=== PATIENT | female | born 1975 | race Caucasian/White ===

== ENCOUNTER → 2020-11-08 17:36 | Outpatient (CLI) | payer BC, SELFPAY ==
--- NOTE | ~2020-11-08 | MM_ITS ---
EXAMINATION: MM screening [facility] BI w [facility] HISTORY: Screening mammogram TECHNIQUE: Craniocaudal and mediolateral oblique 3-D tomosynthesis images were obtained and synthetic 2-D images were generated. CAD analysis was submitted and interpreted. COMPARISON: 05/21/2018, 05/11/2017, 02/25/2015 BREAST PARENCHYMAL COMPOSITION: There are scattered areas of fibroglandular density. FINDINGS: There is no evidence of suspicious mass, calcification, or architectural distortion to sugg est malignancy in either breast. There has been no suspicious interval change. IMPRESSION: 1. No mammographic evidence of malignancy. 2. Recommend routine screening mammography in one year. BI-RADS Category 1: Negative Reviewed, dictated and finalized at location A.
== END ==
PROVIDERS: Visit Provider Nurse Practitioner Women's Health
DX: Z12.31 Encounter for screening mammogram for malignant neoplasm of breast (principal)
CPT/HCPCS: 77063; 77067

== ENCOUNTER → 2022-02-07 08:06 | Outpatient (CLI) | payer BC, SELFPAY ==
--- NOTE | ~2022-02-07 | MM_ITS ---
EXAMINATION: MM screening [facility] w [facility] HISTORY: Screening TECHNIQUE: Craniocaudal and mediolateral oblique 3-D tomosynthesis images were obtained and synthetic 2-D images were generated. CAD analysis was submitted and interpreted. COMPARISON: Comparison to multiple prior studies sequentially, with oldest reviewed study dated 01/2018. BREAST PARENCHYMAL COMPOSITION: There are scattered areas of fibroglandular density. FINDINGS: There is no evidence of suspicious mass, calcification, or architectural distortion to sugg est malignancy in either breast. There has been no suspicious interval change. IMPRESSION: 1. No mammographic evidence of malignancy. 2. Recommend routine screening mammography in one year. BI-RADS Category 1: Negative Reviewed, dictated and finalized at location A.
== END ==
PROVIDERS: PCP Internal Medicine; Visit Provider Nurse Practitioner Women's Health
DX: Z12.31 Encounter for screening mammogram for malignant neoplasm of breast (principal)
CPT/HCPCS: 77063; 77067

== ENCOUNTER 2024-02-22 07:14 | Outpatient (CLI) | payer BC, SELFPAY ==
--- NOTE | ~2024-02-22 | MM_ITS ---
EXAMINATION: MM screening [facility] w [facility] HISTORY: Screening TECHNIQUE: Craniocaudal and mediolateral oblique 3-D tomosynthesis images were obtained and synthetic 2-D images were generated. CAD analysis was submitted and interpreted. COMPARISON: Comparison to multiple prior studies sequentially, with oldest reviewed study dated 02/01. BREAST PARENCHYMAL COMPOSITION: Not dense: There are scattered areas of fibroglandular density. FINDINGS: There is no evidence of suspicious mass, calcification, or architectural distortion to sugg est malignancy in either breast. There has been no suspicious interval change. IMPRESSION: 1. No mammographic evidence of malignancy. 2. Recommend routine screening mammography in one year. BI-RADS Category 1: Negative Reviewed, dictated and finalized at location B.
== END 2024-02-22 07:15 | disposition home or self-care (01) ==
PROVIDERS: PCP Internal Medicine
DX: Z12.31 Encounter for screening mammogram for malignant neoplasm of breast (principal)
CPT/HCPCS: 77063; 77067

== ENCOUNTER 2024-08-30 05:48 | Day surgery (SDC) | payer OTHER, SELFPAY ==
[2024-08-09 11:51] VITALS: BMI 34.7
--- NOTE | 2024-08-29 16:26 | P.PNAN_ITS ---
Anes - Initial Pre Proc Eval Procedure: Operation Date: 08/30/24 07:30 Proposed Procedures p Bilateral Breast Reduction Mammoplasty - Luis Weeks MD Date/Time: 08/29/24 16:26 Surgeon: Luis Weeks MD Pre Op Diagnosis: Macromastia Patient Data Age: 48 Gender: F Height: 1.6 m Weight: 89 kg Allergies Allergy/AdvReac Type Severity Reaction Status Date / Time No Known Allergies Allergy Verified 08/30/24 06:14 Home Medications ?Medication ?Instructions ?Recorded ?Confirmed ?Type citalopram 10 mg tablet 10 mg PO DAILY 08/09/24 08/30/24 History Patient hx anesthesia problems: post op nausea/vomiting Family hx anesthesia problems: none Results Review: All pre-operative results and documents have been reviewed as part of the pre- operative evaluation. [facility] Past Medical History Medical History (Updated 08/30/24 @ 06:50 by Pankaj Sim DO) Anxiety Social History Social History Smoking status: Never smoker Second hand tobacco smoke exposure: No Alcohol intake: current Substance use: never Substance use type: does not use Living arrangements: with family Spiritual care concerns: No Anes - Eval Final PreProcedure Day of Procedure 08/29/24 16:26 Patient weight: obese Heart: regular rate and rhythm Lungs: clear to auscultation Airway: Mallampati scale class II Neurological: alert and oriented Last oral intake: >/= 8 hours ASA classification: II Emergent: no Anesthetic plan: proceed Anesthesia type and monitoring: general LMA and standard monitoring Results Review: All pre-operative results and documents have been reviewed as part of the pre- operative evaluation. Informed Consent: The patient's anesthetic plan and its attendant risks and benefits were discussed with the patient/family/POA. Questions were solicited and answers provided to the satisfaction of the patient/family/POA.
[2024-08-30] VITALS (14 sets, daily range): BP systolic 120–135; BP diastolic 58–81; PULSE 80–95; RESP 13–16; TEMP 36.4–36.7; O2SAT 94–100; BMI 34.7
--- OUTSIDE RECORDS SUMMARY | 2024-08-30 06:05 | XMS_ITS | Clinical Summary ---
Author Organization [facility] Medical Office Building B Address [address] [place] [address] Care Team Providers Care Hydrographic Surveyor Name Role Phone Gera Moraes MD Primary Care Provider + Allergies No known active allergies Medications citalopram (CeleXA) 10 mg tablet Take 1 tablet (10 mg total) by mouth daily Active valACYclovir (VALTREX) 500 mg tablet TAKE 1 TABLET(500 MG) BY MOUTH DAILY 90 tablet 3 4 Active norethindrone-e. estradioL-iron (Claribel 24 Fe) 1 mg-20 mcg (24)/75 mg (4) per tablet Take 1 tablet by mouth daily 84 tablet 3 4 Active Additional Information Patient not taking.Reported on 07/03/2024 HYDROcodone-acet aminophen (NORCO) 5-325 mg per tabletIndication s:Pain Take 1 tablet by mouth every 6 (six) hours as needed for pain 12 tablet 4 Active Additional Information Patient not taking.Reported on 07/03/2024 predniSONE (DELTASONE) 10 mg tabletIndication s:Rash and nonspecific skin eruption Take 3 tabs days 1 & 2, 2 tabs days 3 & 4, 1 tab days 5-7. 13 tablet 5 Active Active Problems Problem Noted Date Diagnosed Date Dysphagia 08/26/2018 Overview (08/26/2018): Added automatically from request for surgery [id number] Well woman exam 10/16/2016 Assessment & Plan (10/16/2016 10:39 AM CDT): Call office with any gyne health issues; wished her luck with her triathalon that she is going to do in January,; RTO in one year for a WWE/prn. Endometriosis 12/22/2013 Overview (08/07/2016): Endometriosis Anxiety 12/22/2013 Overview (08/07/2016): Anxiety Infertile 12/22/2013 Overview (08/07/2016): Infertility Encounters Date Type Department Care Team Description 07/03/2024 6:00 PM SUGAR HOUSE SUPERVISOR Office Visit [facility] at [address] [address] Lauren Han, GUME Rash and nonspecific skin eruption (Primary Dx) from Last 3 Months Immunizations Immunization Administration Dates Next Due Influenza, Quadrivalent, Split, Intramuscular Influenza, Quadrivalent, Spl it, Preservative Free, Intramuscular 02/27/2019,03/14/2018 Surgical History Surgery Date Site/Laterality Comments OTHER SURGICAL HISTORY Endometriosis: lap- diagnostic COLON SURGERY 03/10/2021 Medical History Medical History Date Comments Hx Other Medical FERTILITY SPECI ALIST Hx Other Medical 01/06/2012 laparoscopy Hx Other Medical Migraine Hx Other Medical Endometriosis; Comments: MTB 12/22/2013 - Epigastric abdominal pain Anxiety 2013 Family History Medical History Relation Name Comments Diabetes Father Mando Wiley Diabetes mellit us; Heart attack Father Mando Wiley Myocardial infa rction; Heart disease Father Mando Wiley Heart disease; Cause of : Heart disease/Heart disease; Obesity Father Mando Wiley Obesity; Breast cancer Father's Sister Cancer Mother Justina Wiley Other Mother Justina Wiley ca-liver; Pancreatic cancer Mother Justina Wiley Cancer -pa ncreatic; Hypertension Other 1 Family history of Hypertension; Cancer Other 2 Family history of Cancer; Diabetes Other 3 Family history of Diabetes mellitus; Heart disease Other 4 Family history of Heart disease; Relation Name Status Comments Father Mando Wiley Alive Father's Sister Mother Justina Wiley Alive Other 1 Other 2 Other 3 Other 4 Social History Tobacco Use Types Packs/Day Years Used Date Smoking Tobacco: Never Smokeless Tobacco: Never Tobacco Cessation:Counseling Given: Not Answered Alcohol Use Standard Drinks/Week Comments Yes 0 (1 standard drink = 0.6 oz pur e alcohol) Social Humiliation, Afraid, Rape, and Kick questionnair e Answer Date Recorded Within the last year, have y ou been afraid of your partner or ex-partner? No 12/14/2022 Within the last year, have y ou been humiliated or emotionally abused in other ways by your partner or ex-partner? No Within the last year, have y ou been kicked, hit, slapped, or otherwise physically hurt by your partner or ex-partner? No 12/14/2022 Within the last year, have y ou been raped or forced to have any kind of sexual activity by your partner or ex-partner? No 12/14/2022 PHQ-2 Answer Date Recorded PHQ-2 Total Score (If total score is 3 or more points, staff should administer the PHQ-9) 0 01/21/2024 Personal Safety Answer Date Recorded Have you ever been in or are you currently in a harmful physical or emotional relationship or is someone making you feel afraid or unsafe? Denies 02/07/2024 Comments No Sex and Gender Information Value Date Recorded Sex Assigned at Not on file Legal Sex Female 4:24 PM SUGAR HOUSE SUPERVISOR Gender Identity Not on file Sexual Orientation Not on file Obstetrics History Para Term AB IAB SAB Ectopic Multiple Livin g Live Births 0 0 0 0 0 0 0 0 0 0 0 Last Filed Vital Signs Vital Sign Reading Time Taken Comments Blood Pressure 126/82 07/03/2024 6:07 PM SUGAR HOUSE SUPERVISOR Pulse 85 07/03/2024 6:07 PM SUGAR HOUSE SUPERVISOR Temperature 36.8 C (98.2 F) 07/03/2024 6:07 PM SUGAR HOUSE SUPERVISOR Respiratory Rate 24 07/03/2024 6:07 PM SUGAR HOUSE SUPERVISOR Oxygen Saturation 98% 07/03/2024 6:07 PM SUGAR HOUSE SUPERVISOR Inhaled Oxygen Concentration - - Weight 87.5 kg (193 lb) 07/03/2024 6:07 PM SUGAR HOUSE SUPERVISOR Height 160 cm (5' 3 ) 02/07/2024 8:57 PM CDT Body Mass Index 34.19 02/07/2024 8:57 PM CDT Plan of Treatment Health Maintenance Due Date Last Done Comments Hepatitis C Screening 1975 DTaP/Tdap/Td Vaccine (1 - Tdap) 10/09/1986 Hepatitis B Screening 10/09/1993 Breast Cancer Screening-Mammogram 02/09/2023 02/09/2022, 11/11/2020, 05/11/2018, Additional history exists Influenza Vaccine (#1) 2024 , 02/27/2019, 02/27/2019, Additional history exists Cervical Cancer Screening 01/20/20252023, 12/14/2022, 10/31/2019, Additional history exists Depression Screening 01/20/2025 01/21/2024, 12/14/2022, 12/05/2021, Additional history exists Regular Well Visit/Exam 18-64 01/20/2025 01/21/2024, 12/14/2022, 12/05/2021, Additional history exists Colon Cancer Screening-Colonoscopy 03/10/2031 03/10/2021 Pneumococcal vaccine <65 Aged Out No longer eligible based on patient's age to complete this topic Procedures Procedure Name Priority Date/Time Associated Diagnosis Comments PAP, REFLEX HPV Routine 01/21/2024 8:40 AM CDT Routine gynecological examination MAMMOGRAPHY Schedule Routine, Read Routine (OP Routine) 02/09/2022 COLONOSCOPY 03/10/2021 11:18 AM SUGAR HOUSE SUPERVISOR from Last 3 Months or Most Recently Relevant to Health Maintenance Results * Pap, reflex HPV (01/21/2024 8:40 AM CDT) CLINICAL INFORMATION: Jordon Oakley Comment:None given LMP Jordon Oakley Comment:[id number] Previous Pap Jordon Oakley Comment:None given Prev. Bx Jordon Oakley Comment:None given SOURCE: Jordon Oakley Comment:Cervix, Endocervix Pap, specimen adequacy Jordon Oakley Comment: Satisfactory for evaluation. Endocervical/transformation zone component present. HPV interp Jordon Oakley Comment: Cytology Results: Negative for intraepithelial lesion or malignancy. COMMENTS Jordon Oakley Comment: This Pap test has been evaluated with computer assisted technology. Legal Arbitrator Kvng Barajas Comment: JENNIFER PEREZ(ASCP) CT Screening location: [address] [address] [place] [address] Comment Jordon Oakley Comment: EXPLANATORY NOTE: The Pap is a screening test for cervical cancer. It is not a diagnostic test and is subject to false negative and false positive results. It is most reliable when a satisfactory sample, regularly obtained, is submitted with relevant clinical findings and history, and when the Pap result is evaluated along with historic and current clinical information. Thin prep 01/21/2024 8:40 AM CDT 01/22/2024 3:09 AM CDT us Therese Pinon NP LAB CYTOLOGY ORDERABLES Fin al Result JORDON Oakley [address] [address] [place] [address] * MAMMOGRAPHY (02/09/2022) Anatomical Region Laterality Modality Breast Mammography us Ninfa Ochoa NP IMG MAMMO PROCEDURES Anita l Result * COLONOSCOPY (03/10/2021 11:18 AM SUGAR HOUSE SUPERVISOR) Anatomical Region Laterality Modality Other Narrative Procedure Note Jessy Finnegan MD - 03/10/2021 11:18 AM CST [facility] Patient Name: Alicia Little Procedure Date: 03/10/2021 11:18 AM Date of : 1975 Admit Type: Outpatient Age: 45 Gender: Female Attending MD: Jessy Finnegan M.D. Room: [facility] END[facility]COPY ROOM 1 Note Status: Finalized Patient Profile: This is a 45 year old female. No family history of colon cancer Procedure: Colonoscopy Indications: Screening for colorectal malignant neoplasm, Thisis the patient's first colonoscopy Referring MD: Gera Moraes M.D. Providers: Jessy Finnegan M.D. Impression: - The entire examined colon is normal overall. - Diverticulosis in the sigmoid colon anddescending colon. - Internal hemorrhoids. - No specimens collected. Recommendation: - Repeat colonoscopy in 10 years for screening purposes. - Continue present medications. Medicines: Monitored Anesthesia Care Complications: No immediate complications. Estimated Blood Loss: Estimated blood loss: none. Procedure: Pre-Anesthesia Assessment: - Prior to the procedure, a History and Physicalwas performed, and patient medications and allergieswere reviewed. The patient's tolerance of previous anesthesia was also reviewed. The risks andbenefits of the procedure and the sedation options and risks were discussed with the patient. All questions were answered, and informed consent was obtained. Prior Anticoagulants: The patient has taken no previous anticoagulant or antiplatelet agents. ASA Grade Assessment: II - A patient with mild systemicdisease. After reviewing the risks and benefits, the patient was deemed in satisfactory condition to undergo the procedure. The benefits, risks and alternatives of theprocedure and sedation were discussed and informed consentwas obtained. All questions were answered. Please referto the signed informed consent document in the medical record. The bowel preparation used was Miralax via split dose instruction. The bowel preparation usedwas bisacodyl tablets via split dose instruction. The scope was passed under direct vision. The Pediatric Colonoscope PCF-H190L [id number] was introducedthrough the anus and advanced to the the cecum, identifiedby appendiceal orifice and ileocecal valve. Thequality of the bowel preparation was excellent. Bowel prepwas administered using a split dose. Findings: The perianal and digital rectal examinations were normal. The cecum appeared normal. The colon (entire examined portion) appeared normal overall. Nopolyps and no mass lesions noted Multiple small-mouthed diverticula were found in the sigmoid colonand descending. Internal hemorrhoids were found during retroflexion. The hemorrhoids were small. Electronically signed by Jessy Finnegan M.D. Jessy Finnegan M.D. 03/10/2021 12:49:13 PM Number of Addenda: 0 Note Initiated On: 03/10/2021 11:18 AM Procedure Code(s): --- Professional --- 34968, Colonoscopy, flexible; diagnostic, including collection of specimen(s) by brushing or washing, when performed (separateprocedure) Diagnosis Code(s): --- Professional --- Z12.11, Encounter for screening for malignant neoplasm of colon K57.30, Diverticulosis of large intestine without perforation orabscess without bleeding K64.8, Other hemorrhoids CPT copyright 2019 [employer]. All rights reserved. The codes documented in this report are preliminary and upon bar tender reviewmay be revised to meet current compliance requirements. Recognized by the [employer] for promoting quality in endoscopy Jessy Finnegan MD ENDOSCOPY PROCEDURES Final Result from Last 3 Months or Most Recently Relevant to Health Maintenance Insurance [employer] Advance Directives For more information, please contact: [phone] * Full Code (Latest Code Status on File) Date Activated Date Inactivated Comments 03/10/2021 11:09 AM 03/10/2021 5:53 PM * Full Code Date Activated Date Inactivated Comments 03/10/2021 11:09 AM 03/10/2021 11:09 AM * Full Code Date Activated Date Inactivated Comments 09/14/2018 12:49 PM 09/14/2018 6:33 PM * Full Code Date Activated Date Inactivated Comments 09/14/2018 12:49 PM 09/14/2018 12:49 PM Care Teams Hydrographic Surveyor Relationship Specialty Start Date End Date Gera Moraes MD [address] [place] [address] PCP - General 07/31/16
--- OUTSIDE RECORDS SUMMARY | 2024-08-30 06:05 | XMS_ITS | Referral Summary ---
Author Organization [facility] Medical Office Building B Address [address] [place] [address] Care Team Providers Care Leasing Sales Consultant Name Role Phone Gera Moraes MD Primary Care Provider + Encounters Date Type Department Care Team Description 07/03/2024 6:00 PM KNOT BORER Office Visit [facility] at [address] [address] Lauren Han NP Rash and nonspecific skin eruption (Primary Dx) from Last 3 Months Allergies No known active allergies Medications citalopram [...] (08/26/2018): Added automatically from request for surgery [id number] Well woman exam 10/16/2016 Assessment & Plan (10/16/2016 10:39 AM CDT): Call office with any gyne health issues; wished her luck with her triathalon that she is going to do in January,; RTO in one year for a WWE/prn. Endometriosis 12/22/2013 Overview (08/07/2016): Endometriosis Anxiety 12/22/2013 Overview (08/07/2016): Anxiety Infertile 12/22/2013 Overview (08/07/2016): Infertility Immunizations Immunization Administration Dates Next Due Influenza, Quadrivalent, Split, Intramuscular Influenza, Quadrivalent, Spl it, Preservative Free, Intramuscular 02/27/2019,03/14/2018 Social History Tobacco Use Types Packs/Day Years [...] on file Legal Sex Female 4:24 PM KNOT BORER Gender Identity Not on file Sexual Orientation Not on file Last Filed Vital Signs Vital Sign Reading Time Taken Comments Blood Pressure 126/82 07/03/2024 6:07 PM KNOT BORER Pulse 85 07/03/2024 6:07 PM KNOT BORER Temperature 36.8 C (98.2 F) 07/03/2024 6:07 PM KNOT BORER Respiratory Rate 24 07/03/2024 6:07 PM KNOT BORER Oxygen Saturation 98% 07/03/2024 6:07 PM KNOT BORER Inhaled Oxygen Concentration - - Weight 87.5 kg (193 lb) 07/03/2024 6:07 PM KNOT BORER Height 160 cm (5' 3 ) 02/07/2024 8:57 PM CDT Body Mass Index 34.19 02/07/2024 8:57 PM CDT Plan of Treatment Not on file Procedures Procedure Name Priority Date/Time Associated Diagnosis Comments PAP, REFLEX HPV Routine 01/21/2024 8:40 AM CDT Routine gynecological examination MAMMOGRAPHY Schedule Routine, Read Routine (OP Routine) 02/09/2022 COLONOSCOPY 03/10/2021 11:18 AM KNOT BORER from Last 3 Months or Most Recently Relevant to Health Maintenance Results * Pap, reflex HPV (01/21/2024 8:40 AM CDT) CLINICAL INFORMATION: Jordon Oakley Comment:None given LMP Jordon Oakley Comment:[id number] Previous Pap Jordon Oakley Comment:None given Prev. Bx Jordon Oakley Comment:None given SOURCE: Jordon Oakley Comment:Cervix, Endocervix Pap, specimen adequacy Jordon Oakley Comment: Satisfactory for evaluation. Endocervical/transformation zone component present. HPV interp Jordon Oakley Comment: Cytology Results: Negative for intraepithelial lesion or malignancy. COMMENTS Jordon Oakley Comment: This Pap test has been evaluated with computer assisted technology. Scheme Technician Kvng Barajas Comment: JENNIFER PEREZ(ASCP) CT Screening location: [address] [address] [place] [address] Comment Jordon Oakley Comment: EXPLANATORY NOTE: The [...] 8:40 AM CDT 01/22/2024 3:09 AM CDT Therese Pinon HAIR COLORIST LAB CYTOLOGY ORDERABLES Fin al Result JORDON Oak[place] [address] [place] [address] * MAMMOGRAPHY (02/09/2022) Anatomical Region Laterality Modality Breast Mammography us Ninfa Ochoa NP IMG MAMMO PROCEDURES Anita l Result * COLONOSCOPY (03/10/2021 11:18 AM KNOT BORER) Anatomical Region Laterality Modality Other Narrative Procedure Note Jessy Finnegan MD - 03/10/2021 11:18 AM CST [facility] Patient Name: Alicia Little Procedure Date: 03/10/2021 11:18 AM Date of : 1975 Admit Type: Outpatient Age: 45 Gender: Female Attending MD: Jessy Finnegan M.D. Room: [facility] ENDOSCOPY ROOM 1 Note Status: Finalized Patient [...] under direct vision. The Pediatric Colonoscope PCF-H190L [id number] was introducedthrough the anus and advanced to [...] 11:18 AM Procedure Code(s): --- Professional --- 57843, Colonoscopy, flexible; diagnostic, including collection of specimen(s) by brushing or washing, when performed (separateprocedure) Diagnosis Code(s): --- Professional --- Z12.11, Encounter for screening for malignant neoplasm of colon K57.30, Diverticulosis of large intestine without perforation orabscess without bleeding K64.8, Other hemorrhoids CPT copyright 2019 [employer]. All rights reserved. The codes documented in this report are preliminary and upon computer systems security administrator reviewmay be revised to meet current compliance requirements. Recognized by the [employer] for promoting quality in endoscopy Jessy Finnegan MD ENDOSCOPY PROCEDURES Final Result from Last 3 Months or Most Recently Relevant to Health Maintenance Insurance [employer] [place] [employer] [place] [employer] [place] Advance Directives For more information, please contact: [phone] * Full Code (Latest Code Status on File) Date Activated Date Inactivated Comments 03/10/2021 11:09 AM 03/10/2021 5:53 PM * Full Code Date Activated Date Inactivated Comments 03/10/2021 11:09 AM 03/10/2021 11:09 AM * Full Code Date Activated Date Inactivated Comments 09/14/2018 12:49 PM 09/14/2018 6:33 PM * Full Code Date Activated Date Inactivated Comments 09/14/2018 12:49 PM 09/14/2018 12:49 PM Care Teams Leasing Sales Consultant Relationship Specialty Start Date End Date Gera Moraes MD [address] [address] PCP - General 07/31/16
--- NOTE | 2024-08-30 06:49 | WPDHPUPDATE1 ---
History and Physical Update Update Date/Time: 08/30/24 06:49 History and Physical has been reviewed, including an updated exam of the patient. There are NO changes in the patient's condition. Risks, benefits, and alternatives have been discussed and questions answered. Patient agrees to proceed with procedure.
--- NOTE | 2024-08-30 07:07 | P.OP_ITS ---
Procedure Note - Detailed Date of Procedure 08/30/24 Pre-op Diagnosis Macromastia Post-op Diagnosis Same Procedure Performed Bilateral reduction mammaplasty Surgeon Luis Weeks MD Anesthesia General Findings Tissue removed: Right: 1109 grams Left: 814 grams Lipoaspirate: 650 cc Description of Procedure She is here today for bilateral breast reduction. Previously and again today the risks, benefits, alternatives were discussed in extensive detail. I wanted her to be very realistic about the risks involved as well as expectations. We discussed aftercare and what to monitor for. She understands we can never guarantee final breast size and there will always be asymmetry. She understands limitations on size reduction / options. I was very upfront and honest about the risks of sensation change and even nipple loss (). Made sure answered all of her questions to her satisfaction today and consent was obtained. She was marked in the preoperative holding area with their verification. The patient was taken to the operating room placed supine on the operating table. Anesthesia was provided by anesthesiology. She was prepped and draped in a standard sterile fashion. A surgical time-out was taken. Stab incisions were made and I tumesced with a tumescent solution. Suction lipectomy of lateral breast / chest wall was completed for contouring based on S.A.F.E. liposuction techniques utilizing a 4mm basket cannula. This was based on preoperative planning, intraoperative observation, and a rolling pinch test which was in full agreement. I marked out the nipple-areolar complex at 42 mm. I then de-epithelialized the pedicle. The pedicle was well left well more than 2 cm in thickness. I then removed the inferior portion of the breast as well as the central keel to get shape based on preoperative planning. At this point copiously irrigated with saline solution and verified a strict hemostasis. I reapproximated the pillars using a 2-0 PDS. I tailor tacked the breast into place with jordi. She was placed in a sitting position. I verified the nipple-areolar complex position based on preoperative markings, intraoperative measurements, and observation which were in full agreement. This nipple-areolar complex was ma rked at 38 mm in size. I then placed supine and de-epithelialized this. Nipple-areolar complex was inset with 3-0 Monocryl. I closed IMF deep with 1 strattafix. I closed the vertical incision with 3-0 Monocryl in the IMF with 3- 0 stratafix. Then everything was closed using a running subcuticular 4-0 Monocryl and tissue glue. Brijjit placed along vertical incision. Laterally placed hemostatic net. A dressing was placed followed by surgical bra. Patient was awoke and taken to PACU without difficulty. All instrument sponge counts were correct at the end of the case. Estimated Blood Loss 100 Drains No Packing No Pathology Yes Complications No immediate complications Condition Stable Disposition PACU
--- NOTE | 2024-08-30 07:09 | SUR.PREOP ---
5852; female staff in room while dr ha marked pt. spouse also at bedside
[2024-08-30] MEDS: LACTATED RINGERS 1,000 ML 30 ML IV CONT ×2 (07:10→10:56)
[2024-08-30] MEDS: TRANEXAMIC ACID 1,000 MG/10 ML AMPUL 1000 MG IV PUSH (07:10)
--- NOTE | 2024-08-30 07:14 | SUR.PREOP ---
0700; 500cc IVF BOLUS INFUSING PER DR CHAMBERS ORDER
[2024-08-30] MEDS: SCOPOLAMINE 1 MG PATCH 1 PATCH TRANSDERM (07:15)
[2024-08-30] MEDS: ceFAZolin SODIUM 2 GM/20 ML SW SYRINGE IV PUSH (07:19)
[2024-08-30] MEDS: LACTATED RINGERS IRRIG 1,000 ML, LIDOCAINE 1% LOCAL INJ 50 ML, EPINEPHrine HCL INJ 1 MG... INFILTRATE (08:10)
[2024-08-30] MEDS: fentaNYL CITRATE INJ (*CRX) 100 MCG/2 ML VIAL 25 MCG IV PUSH ×4 (11:04→11:45)
[2024-08-30] MEDS: ONDANSETRON INJ 4 MG/2 ML VIAL IV PUSH (11:09)
[2024-08-30] MEDS: diphenhydrAMINE HCl INJ 50 MG/ML VIAL 25 MG IV PUSH (11:26)
[2024-08-30] MEDS: HYDROmorphone HCL INJ (*CRX) 1 MG/ML SYR 0.5 MG IV PUSH ×2 (12:27→12:40)
--- NOTE | 2024-08-30 12:41 | WPDANESPN ---
Anes - Prog Note Post-Op Date/Time: 08/30/24 12:41 Cardiovascular status: normal Respiratory status: normal Airway patency: baseline Mental status: baseline Post-Op hydration status: normal Vital Signs: Last Vital Signs Temp 36.4 C L 08/30/24 10:56 Pulse 88 08/30/24 12:15 Resp 16 08/30/24 12:15 BP 133/70 08/30/24 12:15 Pulse Ox 97 08/30/24 12:15 O2 Del Method Room Air 08/30/24 12:15 O2 Flow Rate 6 08/30/24 11:16 Pain Score (VAS): 6 I/O: Intake & Output 08/29/24 08/30/24 08/30/24 23:59 07:59 15:59 Intake Total 1350 Balance 1350 Post-procedural complaints: none Patient Feedback: Patient satisfied with anesthetic care. Other Findings: Patient vital signs back to baseline. Patient denies nausea and vomiting. Patient's pain under control. Patient OK for discharge.
[2024-08-30] MEDS: oxyCODONE HCL (*CRX) 5 MG TAB IR PO (13:10)
--- NOTE | 2024-08-30 13:54 | SUR.PHASEII ---
2508- call made to Dr. Weeks to explain pain level and discomfort patient is experiencing- had Linda Mendez r.n. assess wound/suture and appearance of incisions and she stated the area look wnl. multiple pain medications given to patient without relief. transfered to mobile phone and let patient explain her discomfort to the doctor. Dr. Weeks gave patient the option of sticking out the discomfort until appointment on wednesday the 01 of september or removing the suture today. Patient opted for keeping the sutures in place. Linda murcia inserted some telfa to keep sutures from catching. patient then decided to head home to get comfortable.
== END 2024-08-30 14:06 | disposition home or self-care (01) ==
PROVIDERS: PCP Internal Medicine; Visit Provider Surgery Plastic and Reconstructive Surgery
PROC: 0HBV0ZZ Excision of Bilateral Breast, Open Approach (ICD-10-PCS; CPT 19318; principal; 2024-08-30 07:30)
DX: N62 Hypertrophy of breast (principal)
CPT/HCPCS: 19318; 29848

== ENCOUNTER 2024-08-30 15:01 | Outpatient (NON) | payer SELFPAY ==
--- OUTSIDE RECORDS SUMMARY | 2024-08-30 16:00 | XMS_ITS | Referral Summary ---
Author Organization [facility] Address [address] [place] [address] Care Team Providers Care Bookkeepers Supervisor Name Role Phone Gera Moraes MD Primary Care Provider + Encounters Date Type Department Care Team Description 07/03/2024 6:00 PM WELL SERVICE PUMP EQUIPMENT OPERATOR Office Visit [facility] at [address] [address] Lauren Han NP Rash and [...] (08/26/2018): Added automatically from request for surgery [id number] Well woman exam 10/16/2016 Assessment & Plan [...] on file Legal Sex Female 4:24 PM WELL SERVICE PUMP EQUIPMENT OPERATOR Gender Identity Not on file Sexual Orientation Not on file Last Filed Vital Signs Vital Sign Reading Time Taken Comments Blood Pressure 126/82 07/03/2024 6:07 PM WELL SERVICE PUMP EQUIPMENT OPERATOR Pulse 85 07/03/2024 6:07 PM WELL SERVICE PUMP EQUIPMENT OPERATOR Temperature 36.8 C (98.2 F) 07/03/2024 6:07 PM WELL SERVICE PUMP EQUIPMENT OPERATOR Respiratory Rate 24 07/03/2024 6:07 PM WELL SERVICE PUMP EQUIPMENT OPERATOR Oxygen Saturation 98% 07/03/2024 6:07 PM WELL SERVICE PUMP EQUIPMENT OPERATOR Inhaled Oxygen Concentration - - Weight 87.5 kg (193 lb) 07/03/2024 6:07 PM WELL SERVICE PUMP EQUIPMENT OPERATOR Height 160 cm (5' 3 ) 02/07/2024 8:57 PM CDT Body Mass Index 34.19 02/07/2024 8:57 PM CDT Plan of Treatment Not on file Procedures Procedure Name Priority Date/Time Associated Diagnosis Comments PAP, REFLEX HPV Routine 01/21/2024 8:40 AM CDT Routine gynecological examination MAMMOGRAPHY Schedule Routine, Read Routine (OP Routine) 02/09/2022 COLONOSCOPY 03/10/2021 11:18 AM WELL SERVICE PUMP EQUIPMENT OPERATOR from Last 3 Months or Most Recently Relevant to Health Maintenance Results * Pap, reflex HPV (01/21/2024 8:40 AM CDT) CLINICAL INFORMATION: Jordon Oakley Comment:None given LMP Jordon Oakley Comment:[id number] Previous Pap Jordon Oakley Comment:None given Prev. Bx Jordon Oakley Comment:None given SOURCE: Jordon Oakley Comment:Cervix, Endocervix Pap, specimen adequacy Jordon Oakley Comment: Satisfactory for evaluation. Endocervical/transformation zone component present. HPV interp Jordon Oakley Comment: Cytology Results: Negative for intraepithelial lesion or malignancy. COMMENTS Jordon Oakley Comment: This Pap test has been evaluated with computer assisted technology. Fresh Foods Technician Kvng Barajas Comment: JENNIFER PEREZ(ASCP) CT Screening location: [address] [address] Chaidez [address] Comment Jordon Oakley Comment: EXPLANATORY NOTE: The [...] CDT 01/22/2024 3:09 AM CDT Therese Pinon [facility] CYTOLOGY ORDERABLES Fin al Result JORDON Oakley [address] [place] [address] * MAMMOGRAPHY (02/09/2022) Anatomical Region Laterality Modality Breast Mammography us Ninfa Ochoa NP IMG MAMMO PROCEDURES Anita l Result * COLONOSCOPY (03/10/2021 11:18 AM WELL SERVICE PUMP EQUIPMENT OPERATOR) Anatomical Region Laterality Modality Other Narrative Procedure Note Jessy Finnegan MD - 03/10/2021 11:18 AM CST [facility] Patient Name: Alicia Little Procedure Date: 03/10/2021 11:18 AM Date of : 1975 Admit Type: Outpatient Age: 45 Gender: Female Attending MD: Jessy Finnegan M.D. Room: [facility] ENDOSCOPY ROOM 1 Note Status: Finalized Patient [...] under direct vision. The Pediatric Colonoscope PCF-H190L [id number] was introducedthrough the anus and advanced to [...] 11:18 AM Procedure Code(s): --- Professional --- 33124, Colonoscopy, flexible; diagnostic, including collection of specimen(s) by brushing or washing, when performed (separateprocedure) Diagnosis Code(s): --- Professional --- Z12.11, Encounter for screening for malignant neoplasm of colon K57.30, Diverticulosis of large intestine without perforation orabscess without bleeding K64.8, Other hemorrhoids CPT copyright 2019 [employer]. All rights reserved. The codes documented in this report are preliminary and upon denial resolution specialist reviewmay be revised to meet current compliance requirements. Recognized by the [employer] for promoting quality in endoscopy Jessy Finnegan MD ENDOSCOPY PROCEDURES Final Result from Last 3 Months or Most Recently Relevant to Health Maintenance [place] [employer] [place] [place] [place] Advance Directives For more information, please contact: [phone] * Full Code (Latest Code Status on File) Date Activated Date Inactivated Comments 03/10/2021 11:09 AM 03/10/2021 5:53 PM * Full Code Date Activated Date Inactivated Comments 03/10/2021 11:09 AM 03/10/2021 11:09 AM * Full Code Date Activated Date Inactivated Comments 09/14/2018 12:49 PM 09/14/2018 6:33 PM * Full Code Date Activated Date Inactivated Comments 09/14/2018 12:49 PM 09/14/2018 12:49 PM Care Teams Bookkeepers Supervisor Relationship Specialty Start Date End Date Gera Moraes MD [address] [place] [address] PCP - General 07/31/16
--- OUTSIDE RECORDS SUMMARY | 2024-08-30 16:00 | XMS_ITS | Clinical Summary ---
Author Organization [facility] Building B Address [address] [place] [address] Care Team Providers Care Crossing Gateman Name Role Phone Gera Moraes MD Primary [...] (08/26/2018): Added automatically from request for surgery [id number] Well woman exam 10/16/2016 Assessment & Plan [...] Department Care Team Description 07/03/2024 6:00 PM INCUBATOR OPERATOR Office Visit [facility] Care at [address] [address] Lauren Han, GUME Rash and [...] on file Legal Sex Female 4:24 PM INCUBATOR OPERATOR Gender Identity Not on file Sexual Orientation Not on file Obstetrics History Para Term AB IAB SAB Ectopic Multiple Livin g Live Births 0 0 0 0 0 0 0 0 0 0 0 Last Filed Vital Signs Vital Sign Reading Time Taken Comments Blood Pressure 126/82 07/03/2024 6:07 PM INCUBATOR OPERATOR Pulse 85 07/03/2024 6:07 PM INCUBATOR OPERATOR Temperature 36.8 C (98.2 F) 07/03/2024 6:07 PM INCUBATOR OPERATOR Respiratory Rate 24 07/03/2024 6:07 PM INCUBATOR OPERATOR Oxygen Saturation 98% 07/03/2024 6:07 PM INCUBATOR OPERATOR Inhaled Oxygen Concentration - - Weight 87.5 kg (193 lb) 07/03/2024 6:07 PM INCUBATOR OPERATOR Height 160 cm (5' 3 ) 02/07/2024 8:57 PM CDT Body Mass Index 34.19 02/07/2024 8:57 PM CDT Plan of Treatment Health Maintenance Due Date Last Done Comments Hepatitis C Screening 1975 DTaP/Tdap/Td Vaccine (1 - Tdap) 10/09/1986 Hepatitis B Screening 10/09/1993 Breast Cancer Screening-Mammogram 02/09/2023 02/09/2022, 11/11/2020, 05/11/2018, Additional history exists Influenza Vaccine (Season Ended) 2025 02/18/2023, 02/27/2019, 02/27/2019, Additional history exists Cervical Cancer [...] (OP Routine) 02/09/2022 COLONOSCOPY 03/10/2021 11:18 AM INCUBATOR OPERATOR from Last 3 Months or Most Recently Relevant to Health Maintenance Results * Pap, reflex HPV (01/21/2024 8:40 AM CDT) CLINICAL INFORMATION: Jordon Oakley Comment:None given LMP Jordon Oakley Comment:[id number] Previous Pap Jordon Oakley Comment:None given Prev. Bx Jordon Oakley Comment:None given SOURCE: Jordon Oakley Comment:Cervix, Endocervix Pap, specimen adequacy Jordon Oakley Comment: Satisfactory for evaluation. Endocervical/transformation zone component present. HPV interp Jordon Oakley Comment: Cytology Results: Negative for intraepithelial lesion or malignancy. COMMENTS Jordon Oakley Comment: This Pap test has been evaluated with computer assisted technology. Customs Manager Kvng Barajas Comment: JENNIFER PEREZ(ASCP) CT Screening location: [address] [address]ER[address] Chaidez [address] Comment Jordon Oakley Comment: EXPLANATORY NOTE: The [...] CYTOLOGY ORDERABLES Fin al Result JORDON Oakley [address] [address]ouch [phone] * MAMMOGRAPHY (02/09/2022) Anatomical Region Laterality Modality Breast Mammography us Ninfa Ochoa NP IMG MAMMO PROCEDURES Anita l Result * COLONOSCOPY (03/10/2021 11:18 AM INCUBATOR OPERATOR) Anatomical Region Laterality Modality Other Narrative Procedure Note Jessy Finnegan MD - 03/10/2021 11:18 AM CST [facility] Patient Name: Alicia Little Procedure Date: 03/10/2021 11:18 AM Date of : 1975 Admit Type: Outpatient Age: 45 Gender: Female Attending MD: Jessy Finnegan M.D. Room: [facility] ENDOSCOPY ROOM 1 Note Status: Finalized Patient [...] under direct vision. The Pediatric Colonoscope PCF-H190L [id number] was introducedthrough the anus and advanced to [...] 11:18 AM Procedure Code(s): --- Professional --- 66225, Colonoscopy, flexible; diagnostic, including collection of specimen(s) by brushing or washing, when performed (separateprocedure) Diagnosis Code(s): --- Professional --- Z12.11, Encounter for screening for malignant neoplasm of colon K57.30, Diverticulosis of large intestine without perforation orabscess without bleeding K64.8, Other hemorrhoids CPT copyright 2019 [employer]. All rights reserved. The codes documented in this report are preliminary and upon vice president quality assurance reviewmay be revised to meet current compliance requirements. Recognized by the [employer] for promoting quality in endoscopy Jessy Finnegan MD ENDOSCOPY PROCEDURES Final Result from Last 3 Months or Most Recently Relevant to Health Maintenance Insurance [employer] [place] [employer] [place] [employer] [place] Advance Directives For more information, please contact: [phone] * Full Code (Latest Code Status on File) Date Activated Date Inactivated Comments 03/10/2021 11:09 AM 03/10/2021 5:53 PM * Full Code Date Activated Date Inactivated Comments 03/10/2021 11:09 AM 03/10/2021 11:09 AM * Full Code Date Activated Date Inactivated Comments 09/14/2018 12:49 PM 09/14/2018 6:33 PM * Full Code Date Activated Date Inactivated Comments 09/14/2018 12:49 PM 09/14/2018 12:49 PM Care Teams Crossing Gateman Relationship Specialty Start Date End Date Gera Moraes MD [address] [place] [address] PCP - General 07/31/16
== END 2024-08-30 15:02 | disposition home or self-care (01) ==
LOC: ANHLAB 15:02
PROVIDERS: PCP Internal Medicine; Visit Provider Surgery Plastic and Reconstructive Surgery
DX: N60.12 Diffuse cystic mastopathy of left breast (principal); N62 Hypertrophy of breast
CPT/HCPCS: 88305

== ENCOUNTER 2025-02-23 07:22 | Outpatient (CLI) | payer BC, SELFPAY ==
--- NOTE | ~2025-02-23 | MM_ITS ---
EXAMINATION: MM screening [facility] w [facility] HISTORY: Screening TECHNIQUE: Craniocaudal and mediolateral oblique 3-D tomosynthesis images were obtained and synthetic 2-D images were generated. CAD analysis was submitted and interpreted. COMPARISON: Comparison to multiple prior studies sequentially, with oldest reviewed study dated 05/11/2017. BREAST PARENCHYMAL COMPOSITION: There are scattered areas of fibroglandular density. FINDINGS: There is no evidence of suspicious mass, calcification, or architectural distortion to suggest malignancy in either breast. Expected post surgical changes in both breasts from recent reduction breast surgery completed in August 2024. IMPRESSION: 1. No mammographic evidence of malignancy. 2. Recommend routine screening mammography in one year. BI-RADS Category 2: Benign finding(s). Reviewed, dictated and finalized at location B.
--- OUTSIDE RECORDS SUMMARY | 2025-02-23 07:27 | XMS_ITS | Encounter Summary ---
Author Organization [facility] Healthcare Address [address] [place] [address] Care Team Providers Care Sock Liner Name Role Phone Gera Moraes MD Primary Care Provider + Encounter Details Date Type Department Care Team (Late st Contact Info) Description 01/31/2025 Results Follow-Up [facility] [address] [place] [address] [address] [place] [address] Therese Pinon NP [address] [place] [id number] Pap, reflex HPV Social History Tobacco Use Types Packs/Day Years Used Date Smoking Tobacco: Never Passive Smoke Exposure: Never Smokeless Tobacco: Never Alcohol Use Standard Drinks/Week Comments Yes 0 [...] points, staff should administer the PHQ-9) 0 01/26/2025 Personal Safety Answer Date Recorded Have you ever been in or are you currently in a harmful physical or emotional relationship or is someone making you feel afraid or unsafe? Denies 02/07/2024 Comments No Sex and Gender Information Value Date Recorded Sex Assigned at Not on file Legal Sex Female 4:24 PM WINDOWS SERVER ADMINISTRATOR Gender Identity Not on file Sexual Orientation Not on file documented as of this encounter Plan of Treatment Not on file documented as of this encounter Visit Diagnoses Not on filedocumented in this encounter Care Teams Sock Liner Relationship Specialty Start Date End Date Gera Moraes MD [address] [place] [address] PCP - General 07/31/16 documented as of this encounter
== END 2025-02-23 07:23 | disposition home or self-care (01) ==
PROVIDERS: PCP Internal Medicine; Visit Provider Nurse Practitioner
DX: Z12.31 Encounter for screening mammogram for malignant neoplasm of breast (principal)
CPT/HCPCS: 77063; 77067